=== PATIENT | male | born 1990 | race Asian ===

== ENCOUNTER 2018-02-24 14:49 | Emergency (ER) | payer BC ==
[2018-02-24] MEDS ORDERED: NEOMY/BACITR/POLYMYXIN OINT PACKET. TP (16:30)
[2018-02-24] MEDS ORDERED: LIDOCAINE 1%/EPI 1:100,000 20 ML VIAL. INJ (17:00)
== END 2018-02-24 17:29 | disposition left against medical advice (07) ==
LOC: ER 17:29
DX: S91.112A Laceration without foreign body of left great toe without damage to nail, initial encounter (principal); X58.XXXA Exposure to other specified factors, initial encounter; Y93.89 Activity, other specified; Y92.89 Other specified places as the place of occurrence of the external cause; Y99.8 Other external cause status
CPT/HCPCS: 99281